=== PATIENT | male | born 1960 | race Caucasian/White ===

== ENCOUNTER 2016-12-04 22:29 | Emergency (ER) | payer MEDICARE, OTHER ==
[2016-12-04 20:59] LABS: BASOPHILS 0.2 %; BASOPHILS ABSOLUTE 0.01 10/3/uL (0.0-0.16); EOSINOPHILS 2.4 %; EOSINOPHILS ABSOLUTE 0.13 10/3/uL (0.0-0.53); ER CBC TAT 0 Hrs 08 Mins; HEMOGLOBIN 11.6 g/dL (13.6-17.8); IMMATURE GRANULOCYTES 0.4 %; IMMATURE GRANULOCYTES ABSOLUTE 0.02 10/3/uL (0.0-0.11); LYMPHOCYTES 15.4 %; LYMPHOCYTES ABSOLUTE 0.82 10/3/uL (0.67-4.30); MEAN CORPUS HGB CONC 32.2 g/dL (32.0-36.0); MEAN CORPUSCULAR HEMOGLOB 28.9 pg (26.0-34.0); MEAN CORPUSCULAR VOLUME 89.8 fL (80-100); MEAN PLATELET VOLUME 10.3 fL (9.2-13.0); MONOCYTES 7.2 %; MONOCYTES ABSOLUTE 0.38 10/3/uL (0.21-1.20); NEUTROPHILS 74.4 %; NEUTROPHILS ABSOLUTE 3.95 10/3/uL (2.02-8.40); PLATELET COUNT 180 10/3/uL (150-400); RBC DISTRIBUTION WIDTH 15.3 % (12.0-16.0); RED CELL COUNT 4.01 10/6/uL (4.7-6.1); WHITE BLOOD CELLS 5.3 10/3/uL (4.5-10.5)
[2016-12-04 21:04] LABS: MANUAL DIFF NO %
[2016-12-04 21:16] LABS: A/G RATIO 0.8 (0.7-1.9); ALKALINE PHOSPHATASE 75 U/L (45-117); CALCIUM, SERUM 8.7 MG/DL (8.5-10.4); CHLORIDE, SERUM 104 MMOL/L (96-112); CO2 (CARBON DIOXIDE) 31 MMOL/L (24-34); CREATININE 0.61 MG/DL (0.70-1.30); GFR AFRICAN AMERICAN 128 ML/MIN (>=60); GFR NON AFRICAN AMERICAN 110 ML/MIN (>=60); GLOBULIN 3.7 G/DL (2.5-4.1); SGOT(AST) 7 U/L (5-40); SGPT(ALT) 15 U/L (5-65); SODIUM, SERUM 145 MMOL/L (135-148); TOTAL BILIRUBIN 0.4 MG/DL (0-1.2); TOTAL PROTEIN 6.6 G/DL (6.0-8.5)
[2016-12-04 21:20] LABS: ASCORBIC ACID (UR NOT ORDER) NEG (NEG); BILIRUBIN, URINE NEGATIVE (NEG); ER URINALYSIS TAT 0 Hrs 10 Mins; KETONE, URINE TRACE MG/DL (NEG); LEUKOCYTE ESTERASE(NOT OR TRACE (NEG); NITRITE (URINE) NEG (NEG); WBC (NOT ORDERED) (RFLEX) 12 (0-5)
[2016-12-04 21:20] LABS: ALBUMIN 2.9 G/DL (3.5-5.0); BUN (BLOOD UREA NITROGEN) 12 MG/DL (6-23); GLUCOSE, SERUM 87 MG/DL (60-99)
[~2016-12-04 22:29] MED LIST: ATV1 PO; CELEXA20 PO; CENTRUM PO; CIP5 PO; DEPAKOTE 125 M125 MG PO; DEPASPRINK PO; DSS PO; ELIQUIS 5 MG TAB5 MG PO; FERROUS SULF325 M1 PO; FLEX PO; FLOMAX4 PO; H5 PO; KEPPRA500 PO; LYRICA50 PO; MELA3 PO; MOBIC15 MG PO; MOMUD PO; MULTIVIT/MIN PO; MYLANTA ULTR1 TAB PO; NAMENXR28 PO; NAMZARIC 28 MG1 EACH PO; NORCO1 TA1 PO; NORCO1 TA2 PO; PERCOCET1 TA2 PO; REM15SOL PO; RISP1 PO; SEPTRA DS1 TAB PO; V5 PO; ZOFRAN4 PO
== END 2016-12-05 01:13 | disposition home or self-care (01) ==
LOC: ER 22:29
PROVIDERS: Nurse Practitioner Acute Care
DX: R06.00 Dyspnea, unspecified (principal); F03.90 Unspecified dementia, unspecified severity, without behavioral disturbance, psychotic disturbance, mood disturbance, and anxiety; F41.9 Anxiety disorder, unspecified; Z87.01 Personal history of pneumonia (recurrent); F25.9 Schizoaffective disorder, unspecified; Z87.440 Personal history of urinary (tract) infections; Z87.891 Personal history of nicotine dependence; Z79.899 Other long term (current) drug therapy
CPT/HCPCS: 71010; 71275; 80053; 81001; 83605; 85025; 85379; 87040; 93005; 99285; Q9967

== ENCOUNTER 2016-12-20 00:54 | Emergency (ER) | payer MEDICARE, OTHER ==
[2016-12-20 01:29] LABS: BASOPHILS 0.1 %; BASOPHILS ABSOLUTE 0.01 10/3/uL (0.0-0.16); EOSINOPHILS 0.7 %; EOSINOPHILS ABSOLUTE 0.05 10/3/uL (0.0-0.53); ER CBC TAT 0 Hrs 05 Mins; HEMATOCRIT 37.3 % (40.0-51.0); HEMOGLOBIN 12.2 g/dL (13.6-17.8); IMMATURE GRANULOCYTES 0.3 %; IMMATURE GRANULOCYTES ABSOLUTE 0.02 10/3/uL (0.0-0.11); LYMPHOCYTES 17.1 %; LYMPHOCYTES ABSOLUTE 1.14 10/3/uL (0.67-4.30); MEAN CORPUS HGB CONC 32.7 g/dL (32.0-36.0); MEAN CORPUSCULAR HEMOGLOB 29.5 pg (26.0-34.0); MEAN CORPUSCULAR VOLUME 90.1 fL (80-100); MEAN PLATELET VOLUME 9.9 fL (9.2-13.0); MONOCYTES 6.4 %; MONOCYTES ABSOLUTE 0.43 10/3/uL (0.21-1.20); NEUTROPHILS 75.4 %; NEUTROPHILS ABSOLUTE 5.02 10/3/uL (2.02-8.40); RBC DISTRIBUTION WIDTH 14.8 % (12.0-16.0); RED CELL COUNT 4.14 10/6/uL (4.7-6.1); WHITE BLOOD CELLS 6.7 10/3/uL (4.5-10.5)
[2016-12-20 01:30] LABS: MANUAL DIFF NO %; PLATELET COUNT 300 10/3/uL (150-400)
[2016-12-20 01:38] LABS: INTERNATIONAL NORMAL RATI 1.3 UNITS (-); PARTIAL THROMBO TIME 36.1 SEC (22.5-37.2); PROTIME (NOT ORD) 15.6 SEC (12.0-14.5)
[2016-12-20 01:42] LABS: BUN (BLOOD UREA NITROGEN) 12 MG/DL (6-23); CALCIUM, SERUM 9.3 MG/DL (8.5-10.4); CHLORIDE, SERUM 106 MMOL/L (96-112); CO2 (CARBON DIOXIDE) 31 MMOL/L (24-34); CREATININE 0.66 MG/DL (0.70-1.30); GFR AFRICAN AMERICAN 124 ML/MIN (>=60); GFR NON AFRICAN AMERICAN 107 ML/MIN (>=60); GLUCOSE, SERUM 95 MG/DL (60-99); POTASSIUM, SERUM 3.7 MMOL/L (3.5-5.3); SODIUM, SERUM 146 MMOL/L (135-148)
== END 2016-12-20 03:31 | disposition home or self-care (01) ==
LOC: ER 00:54
PROVIDERS: Nurse Practitioner Acute Care
DX: I82.401 Acute embolism and thrombosis of unspecified deep veins of right lower extremity (principal); F03.90 Unspecified dementia, unspecified severity, without behavioral disturbance, psychotic disturbance, mood disturbance, and anxiety; F32.9 Major depressive disorder, single episode, unspecified; F25.9 Schizoaffective disorder, unspecified; Z87.01 Personal history of pneumonia (recurrent); Z79.899 Other long term (current) drug therapy
CPT/HCPCS: 80048; 85025; 85610; 85730; 99284

== ENCOUNTER 2017-02-10 11:10 | Inpatient (IN) | payer MEDICARE, OTHER ==
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
--- NOTE | ~2017-02-10 | EEG ---
Electroencephalogram [facility] [address] [place]. [address] NAME: DANAY AMAYA : 56 STATUS : ADM IN PAT#: [id number] AGE: 57 ADM/REG DATE : 02/10/17 MR#: [id number] REPORT SERV DATE: 02/12/17 DICTATED BY: DATE: REPORT STATUS : Draft TRANSCRIBED BY: MODL DATE: 02/12/17 INDICATION: Encephalopathy. DESCRIPTION: This EEG was performed using 10/20 electrode placement system with the patient noted to have symmetric background activity, predominant occipital rhythm of 8-9 hertz. Photic stimulation was performed. Hyperventilation was not performed secondary to the patient's underlying medical condition. During the EEG study, the patient was noted to have episodes of shaking with subsequent rhythmic activity, mostly noted in the right occipital area with . The patient was noted to have the same rhythmic activity with EKG leads. Otherwise, no other focal abnormalities, seizure activity, seizure discharge was noted. Prior to the shaking episode, the patient was not noted to have any abnormal EEG changes the patient does not appear to have any EEG background slowing after shaking episodes. The patient achieved drowsy state during the EEG study. INTERPRETATION: This EEG study obtained during awake and drowsy state may be considered within normal limits. During the EEG study, the patient does have episodes of shaking activity with resulting EKG rhythmic activity as well as rhythmic activity mostly in the right occipital area without significant . Rhythmic activity on the EEG as well as EKG leads was felt to be secondary to motion artifact, less likely to be seizure in origin. Clinical correlation is otherwise recommended. [facility]/MODL Jonatan Reynoso MD / [id number] CC: DO Zak Geller M.D.
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
[2017-02-10 10:55] LABS: BASOPHILS 0.2 %; BASOPHILS ABSOLUTE 0.01 10/3/uL (0.0-0.16); EOSINOPHILS 1.7 %; IMMATURE GRANULOCYTES 0.5 %; IMMATURE GRANULOCYTES ABSOLUTE 0.03 10/3/uL (0.0-0.11); LYMPHOCYTES 11.4 %; LYMPHOCYTES ABSOLUTE 0.67 10/3/uL (0.67-4.30); MEAN CORPUS HGB CONC 31.9 g/dL (32.0-36.0); MEAN CORPUSCULAR HEMOGLOB 27.9 pg (26.0-34.0); MEAN CORPUSCULAR VOLUME 87.4 fL (80-100); MEAN PLATELET VOLUME 9.1 fL (9.2-13.0); MONOCYTES 9.7 %; MONOCYTES ABSOLUTE 0.57 10/3/uL (0.21-1.20); NEUTROPHILS 76.5 %; NEUTROPHILS ABSOLUTE 4.52 10/3/uL (2.02-8.40); PLATELET COUNT 228 10/3/uL (150-400); RBC DISTRIBUTION WIDTH 14.5 % (12.0-16.0); WHITE BLOOD CELLS 5.9 10/3/uL (4.5-10.5)
[2017-02-10 10:56] LABS: HEMATOCRIT 26.3 % (40.0-51.0); HEMOGLOBIN 8.4 g/dL (13.6-17.8); MANUAL DIFF NO %; RED CELL COUNT 3.01 10/6/uL (4.7-6.1)
[2017-02-10 11:11] LABS: A/G RATIO 0.8 (0.7-1.9); ALBUMIN 2.6 G/DL (3.5-5.0); ALKALINE PHOSPHATASE 65 U/L (45-117); BUN (BLOOD UREA NITROGEN) 14 MG/DL (6-23); CALCIUM, SERUM 9.2 MG/DL (8.5-10.4); CHLORIDE, SERUM 112 MMOL/L (96-112); CO2 (CARBON DIOXIDE) 32 MMOL/L (24-34); CREATININE 0.56 MG/DL (0.70-1.30); GFR AFRICAN AMERICAN 131 ML/MIN (>=60); GFR NON AFRICAN AMERICAN 113 ML/MIN (>=60); GLOBULIN 3.1 G/DL (2.5-4.1); GLUCOSE, SERUM 100 MG/DL (60-99); POTASSIUM, SERUM 4.3 MMOL/L (3.5-5.3); SGOT(AST) 10 U/L (5-40); SGPT(ALT) 9 U/L (5-65); SODIUM, SERUM 148 MMOL/L (135-148); TOTAL BILIRUBIN 0.3 MG/DL (0-1.2); TOTAL PROTEIN 5.7 G/DL (6.0-8.5)
[2017-02-10] MEDS ORDERED: RISP2 PO (11:12)
[2017-02-10 13:04] LABS: ASCORBIC ACID (UR NOT ORDER) NEG (NEG); BILIRUBIN, URINE NEGATIVE (NEG); KETONE, URINE NEGATIVE (NEG); LEUKOCYTE ESTERASE(NOT OR TRACE (NEG); NITRITE (URINE) NEG (NEG)
[2017-02-10 13:05] LABS: WBC (NOT ORDERED) (RFLEX) > 182 (0-5)
[2017-02-10 13:06] LABS: INTERNATIONAL NORMAL RATI 1.3 UNITS (-); PARTIAL THROMBO TIME 35.5 SEC (22.5-37.2); PROTIME (NOT ORD) 16.4 SEC (12.0-14.5)
[2017-02-10 13:19] LABS: ALLENS TEST Pos; BE (BASE EXCESS) -0.6 MEQ/L (0 +/- 2.5); CARBOXYHEMOGLOBIN 1.2 % (0-3); HEMOBLOGIN CONTENT 8.5 G/DL (14-18); INSTRUMENT SERIAL # 8087; METHEMOGLOBIN 0.4 % (0-3); OPERATOR ID 18801; PCO2 (CO2 TENSION) 46 MMHG (35-45); PO2 (O2 TENSION) 160 MMHG (79-93); SAMPLE Arterial; pH 7.35 (7.37-7.43)
[2017-02-10 19:17] LABS: HEMATOCRIT 26.4 % (40.0-51.0); HEMOGLOBIN 8.6 g/dL (13.6-17.8)
[2017-02-10 19:36] LABS: TROPONIN I <0.02 NG/ML (<0.05)
[2017-02-10 20:20] LABS: PROCALCITONIN < 0.05 ng/mL (<0.5)
[2017-02-10 22:34] LABS: HEMATOCRIT 26.7 % (40.0-51.0); HEMOGLOBIN 8.8 g/dL (13.6-17.8)
[2017-02-10 22:49] LABS: A/G RATIO 0.7 (0.7-1.9); ALBUMIN 2.3 G/DL (3.5-5.0); ALKALINE PHOSPHATASE 63 U/L (45-117); CALCIUM, SERUM 8.3 MG/DL (8.5-10.4); CHLORIDE, SERUM 112 MMOL/L (96-112); GFR AFRICAN AMERICAN 137 ML/MIN (>=60); GFR NON AFRICAN AMERICAN 119 ML/MIN (>=60); GLOBULIN 3.1 G/DL (2.5-4.1); GLUCOSE, SERUM 91 MG/DL (60-99); POTASSIUM, SERUM 3.9 MMOL/L (3.5-5.3); SGOT(AST) 14 U/L (5-40); SGPT(ALT) 9 U/L (5-65); SODIUM, SERUM 146 MMOL/L (135-148); TOTAL BILIRUBIN 0.4 MG/DL (0-1.2); TOTAL PROTEIN 5.4 G/DL (6.0-8.5)
[2017-02-10 22:51] LABS: BUN (BLOOD UREA NITROGEN) 8 MG/DL (6-23); CO2 (CARBON DIOXIDE) 27 MMOL/L (24-34)
[2017-02-11 02:20] LABS: ALLENS TEST Pos; CARBOXYHEMOGLOBIN 0.7 % (0-3); DEVICE NC; HCO3 (ACTUAL BICARBONATE) 25.7 MEQ/L (23-27); HEMOBLOGIN CONTENT 9.1 G/DL (14-18); INSTRUMENT SERIAL # 8083; METHEMOGLOBIN 0.3 % (0-3); O2 CONTENT 12.4 VOL% (18-24); OPERATOR ID 31061; PCO2 (CO2 TENSION) 41 MMHG (35-45); PO2 (O2 TENSION) 91 MMHG (79-93); SAMPLE Arterial; pH 7.41 (7.37-7.43)
[2017-02-11 05:17] LABS: BASOPHILS 0.3 %; BASOPHILS ABSOLUTE 0.02 10/3/uL (0.0-0.16); EOSINOPHILS 2.2 %; EOSINOPHILS ABSOLUTE 0.15 10/3/uL (0.0-0.53); HEMATOCRIT 26.5 % (40.0-51.0); HEMOGLOBIN 8.8 g/dL (13.6-17.8); IMMATURE GRANULOCYTES 0.3 %; IMMATURE GRANULOCYTES ABSOLUTE 0.02 10/3/uL (0.0-0.11); LYMPHOCYTES 11.1 %; LYMPHOCYTES ABSOLUTE 0.76 10/3/uL (0.67-4.30); MEAN CORPUS HGB CONC 33.2 g/dL (32.0-36.0); MEAN CORPUSCULAR HEMOGLOB 28.9 pg (26.0-34.0); MEAN CORPUSCULAR VOLUME 87.2 fL (80-100); MEAN PLATELET VOLUME 9.7 fL (9.2-13.0); MONOCYTES 7.4 %; MONOCYTES ABSOLUTE 0.51 10/3/uL (0.21-1.20); NEUTROPHILS 78.7 %; NEUTROPHILS ABSOLUTE 5.39 10/3/uL (2.02-8.40); PLATELET COUNT 229 10/3/uL (150-400); RBC DISTRIBUTION WIDTH 14.8 % (12.0-16.0); RED CELL COUNT 3.04 10/6/uL (4.7-6.1); WHITE BLOOD CELLS 6.9 10/3/uL (4.5-10.5)
[2017-02-11 05:19] LABS: MANUAL DIFF NO %
[2017-02-11 05:32] LABS: BUN (BLOOD UREA NITROGEN) 6 MG/DL (6-23); CALCIUM, SERUM 8.7 MG/DL (8.5-10.4); CHLORIDE, SERUM 112 MMOL/L (96-112); CO2 (CARBON DIOXIDE) 27 MMOL/L (24-34); CREATININE 0.68 MG/DL (0.70-1.30); GFR AFRICAN AMERICAN 121 ML/MIN (>=60); GFR NON AFRICAN AMERICAN 105 ML/MIN (>=60); GLUCOSE, SERUM 114 MG/DL (60-99); PHOSPHORUS, SERUM 3.5 MG/DL (2.5-4.5); POTASSIUM, SERUM 3.6 MMOL/L (3.5-5.3); SODIUM, SERUM 148 MMOL/L (135-148); TROPONIN I <0.02 NG/ML (<0.05)
[2017-02-11 10:05] LABS: HEMOGLOBIN 8.6 g/dL (13.6-17.8)
[2017-02-11 10:47] LABS: HEMATOCRIT 25.4 % (40.0-51.0); HEMOGLOBIN 8.5 g/dL (13.6-17.8)
[2017-02-11 11:06] LABS: CK-MB 2.2 NG/ML; CPK 66 U/L (0-200); FOLATE 21.1 NG/ML (>5.2); TROPONIN I <0.02 NG/ML (<0.05)
[2017-02-11 17:50] LABS: HEMATOCRIT 23.4 % (40.0-51.0)
[2017-02-11 18:03] LABS: CPK 62 U/L (0-200); TROPONIN I <0.02 NG/ML (<0.05)
[2017-02-11 18:04] LABS: CK-MB 1.5 NG/ML
[2017-02-11 23:09] LABS: HEMATOCRIT 24.5 % (40.0-51.0); HEMOGLOBIN 7.9 g/dL (13.6-17.8)
[2017-02-12 05:19] LABS: BASOPHILS 0.3 %; BASOPHILS ABSOLUTE 0.01 10/3/uL (0.0-0.16); EOSINOPHILS 3.6 %; EOSINOPHILS ABSOLUTE 0.12 10/3/uL (0.0-0.53); HEMATOCRIT 21.8 % (40.0-51.0); HEMOGLOBIN 7.1 g/dL (13.6-17.8); IMMATURE GRANULOCYTES 0.3 %; IMMATURE GRANULOCYTES ABSOLUTE 0.01 10/3/uL (0.0-0.11); LYMPHOCYTES 26.9 %; MANUAL DIFF NO %; MEAN CORPUS HGB CONC 32.6 g/dL (32.0-36.0); MEAN CORPUSCULAR HEMOGLOB 28.6 pg (26.0-34.0); MEAN CORPUSCULAR VOLUME 87.9 fL (80-100); MEAN PLATELET VOLUME 9.9 fL (9.2-13.0); MONOCYTES 11.4 %; MONOCYTES ABSOLUTE 0.38 10/3/uL (0.21-1.20); NEUTROPHILS 57.5 %; NEUTROPHILS ABSOLUTE 1.92 10/3/uL (2.02-8.40); PLATELET COUNT 198 10/3/uL (150-400); RBC DISTRIBUTION WIDTH 14.8 % (12.0-16.0); RED CELL COUNT 2.48 10/6/uL (4.7-6.1); WHITE BLOOD CELLS 3.3 10/3/uL (4.5-10.5)
[2017-02-12 06:05] LABS: CALCIUM, SERUM 8.2 MG/DL (8.5-10.4); CHLORIDE, SERUM 113 MMOL/L (96-112); CO2 (CARBON DIOXIDE) 29 MMOL/L (24-34); CREATININE 0.51 MG/DL (0.70-1.30); FREE T4 1.04 NG/DL (0.76-1.46); GFR AFRICAN AMERICAN 136 ML/MIN (>=60); GFR NON AFRICAN AMERICAN 118 ML/MIN (>=60); GLUCOSE, SERUM 103 MG/DL (60-99); POTASSIUM, SERUM 3.2 MMOL/L (3.5-5.3); SODIUM, SERUM 143 MMOL/L (135-148)
[2017-02-12 06:13] LABS: BUN (BLOOD UREA NITROGEN) 2 MG/DL (6-23); FOLATE 19.2 NG/ML (>5.2); PHOSPHORUS, SERUM 2.4 MG/DL (2.5-4.5)
[2017-02-12 10:54] LABS: HEMATOCRIT 23.6 % (40.0-51.0); HEMOGLOBIN 7.7 g/dL (13.6-17.8)
[2017-02-12 13:54] LABS: AMPHETAMINES (NOT ORD) NEG (NEG); BARBITURATES (NOT ORDERED NEG (NEG); BENZODIAZEPINES (NOT ORD) NEG (NEG); CANNABINOIDS (THC) NEG (NEG); COCAINE (NOT ORDERED) NEG (NEG); OPIATES NEG (NEG); PHENCYCLIDINE(PCP) NEG (NEG); TRICYCLICS NEG (NEG)
[2017-02-12 14:31] LABS: WBC (NOT ORDERED) (RFLEX) 0 (0-5)
[2017-02-12 15:18] LABS: ASCORBIC ACID (UR NOT ORDER) NEG (NEG); BILIRUBIN, URINE NEGATIVE (NEG); KETONE, URINE NEGATIVE (NEG); LEUKOCYTE ESTERASE(NOT OR NEG (NEG)
[2017-02-12 15:49] LABS: AMPHETAMINES (NOT ORD) NEG (NEG); BARBITURATES (NOT ORDERED NEG (NEG); BENZODIAZEPINES (NOT ORD) POS (NEG); CANNABINOIDS (THC) NEG (NEG); COCAINE (NOT ORDERED) NEG (NEG); OPIATES NEG (NEG); PHENCYCLIDINE(PCP) NEG (NEG); TRICYCLICS NEG (NEG)
[2017-02-13 05:51] LABS: BASOPHILS 0.2 %; BASOPHILS ABSOLUTE 0.02 10/3/uL (0.0-0.16); EOSINOPHILS 0.8 %; EOSINOPHILS ABSOLUTE 0.08 10/3/uL (0.0-0.53); IMMATURE GRANULOCYTES 0.4 %; IMMATURE GRANULOCYTES ABSOLUTE 0.04 10/3/uL (0.0-0.11); LYMPHOCYTES 8.6 %; MEAN CORPUS HGB CONC 33.9 g/dL (32.0-36.0); MEAN CORPUSCULAR HEMOGLOB 28.9 pg (26.0-34.0); MEAN PLATELET VOLUME 9.8 fL (9.2-13.0); MONOCYTES 5.4 %; MONOCYTES ABSOLUTE 0.57 10/3/uL (0.21-1.20); NEUTROPHILS 84.6 %; NEUTROPHILS ABSOLUTE 8.89 10/3/uL (2.02-8.40); PLATELET COUNT 234 10/3/uL (150-400); RBC DISTRIBUTION WIDTH 14.9 % (12.0-16.0)
[2017-02-13 05:54] LABS: HEMATOCRIT 33.3 % (40.0-51.0); HEMOGLOBIN 11.3 g/dL (13.6-17.8); MEAN CORPUSCULAR VOLUME 85.2 fL (80-100); RED CELL COUNT 3.91 10/6/uL (4.7-6.1); WHITE BLOOD CELLS 10.5 10/3/uL (4.5-10.5)
[2017-02-13 05:55] LABS: MANUAL DIFF NO %
[2017-02-13 06:02] LABS: BUN (BLOOD UREA NITROGEN) 1 MG/DL (6-23); CALCIUM, SERUM 8.3 MG/DL (8.5-10.4); CHLORIDE, SERUM 111 MMOL/L (96-112); CO2 (CARBON DIOXIDE) 26 MMOL/L (24-34); CREATININE 0.52 MG/DL (0.70-1.30); GFR AFRICAN AMERICAN 135 ML/MIN (>=60); GFR NON AFRICAN AMERICAN 117 ML/MIN (>=60); GLUCOSE, SERUM 101 MG/DL (60-99); PHOSPHORUS, SERUM 2.2 MG/DL (2.5-4.5); POTASSIUM, SERUM 3.4 MMOL/L (3.5-5.3); SODIUM, SERUM 145 MMOL/L (135-148); VANCOMYCIN TROUGH 17.7 MCG/ML (10.0-20.0)
[2017-02-14 05:28] LABS: BASOPHILS 0.2 %; BASOPHILS ABSOLUTE 0.02 10/3/uL (0.0-0.16); EOSINOPHILS 0.5 %; EOSINOPHILS ABSOLUTE 0.05 10/3/uL (0.0-0.53); HEMATOCRIT 32.2 % (40.0-51.0); HEMOGLOBIN 10.8 g/dL (13.6-17.8); IMMATURE GRANULOCYTES 0.2 %; IMMATURE GRANULOCYTES ABSOLUTE 0.02 10/3/uL (0.0-0.11); LYMPHOCYTES 10.2 %; LYMPHOCYTES ABSOLUTE 1.09 10/3/uL (0.67-4.30); MANUAL DIFF NO %; MEAN CORPUS HGB CONC 33.5 g/dL (32.0-36.0); MEAN CORPUSCULAR HEMOGLOB 28.5 pg (26.0-34.0); MEAN PLATELET VOLUME 9.8 fL (9.2-13.0); MONOCYTES 6.7 %; MONOCYTES ABSOLUTE 0.72 10/3/uL (0.21-1.20); NEUTROPHILS 82.2 %; NEUTROPHILS ABSOLUTE 8.78 10/3/uL (2.02-8.40); PLATELET COUNT 255 10/3/uL (150-400); RBC DISTRIBUTION WIDTH 15.2 % (12.0-16.0); RED CELL COUNT 3.79 10/6/uL (4.7-6.1); WHITE BLOOD CELLS 10.7 10/3/uL (4.5-10.5)
[2017-02-14 05:37] LABS: CALCIUM IONIZED 4.61 MG/DL (3.80-4.80)
[2017-02-14 05:43] LABS: A/G RATIO 0.8 (0.7-1.9); ALKALINE PHOSPHATASE 66 U/L (45-117); BUN (BLOOD UREA NITROGEN) 2 MG/DL (6-23); CALCIUM, SERUM 8.2 MG/DL (8.5-10.4); CHLORIDE, SERUM 111 MMOL/L (96-112); CO2 (CARBON DIOXIDE) 24 MMOL/L (24-34); CREATININE 0.61 MG/DL (0.70-1.30); GFR AFRICAN AMERICAN 127 ML/MIN (>=60); GFR NON AFRICAN AMERICAN 109 ML/MIN (>=60); GLOBULIN 3.3 G/DL (2.5-4.1); GLUCOSE, SERUM 96 MG/DL (60-99); PHOSPHORUS, SERUM 2.4 MG/DL (2.5-4.5); POTASSIUM, SERUM 3.4 MMOL/L (3.5-5.3); SGOT(AST) 11 U/L (5-40); SGPT(ALT) 11 U/L (5-65); SODIUM, SERUM 143 MMOL/L (135-148); TOTAL BILIRUBIN 0.7 MG/DL (0-1.2); TOTAL PROTEIN 6.1 G/DL (6.0-8.5)
[2017-02-14 05:50] LABS: ALBUMIN 2.8 G/DL (3.5-5.0)
[2017-02-14 06:21] LABS: PROCALCITONIN 0.06 ng/mL (<0.5)
[2017-02-15 05:01] LABS: BASOPHILS 0.2 %; BASOPHILS ABSOLUTE 0.02 10/3/uL (0.0-0.16); EOSINOPHILS 0.7 %; EOSINOPHILS ABSOLUTE 0.06 10/3/uL (0.0-0.53); HEMATOCRIT 31.4 % (40.0-51.0); HEMOGLOBIN 10.7 g/dL (13.6-17.8); IMMATURE GRANULOCYTES 0.2 %; IMMATURE GRANULOCYTES ABSOLUTE 0.02 10/3/uL (0.0-0.11); LYMPHOCYTES 13.7 %; LYMPHOCYTES ABSOLUTE 1.16 10/3/uL (0.67-4.30); MEAN CORPUS HGB CONC 34.1 g/dL (32.0-36.0); MEAN CORPUSCULAR VOLUME 85.1 fL (80-100); MEAN PLATELET VOLUME 9.7 fL (9.2-13.0); MONOCYTES 7.4 %; MONOCYTES ABSOLUTE 0.63 10/3/uL (0.21-1.20); NEUTROPHILS 77.8 %; PLATELET COUNT 236 10/3/uL (150-400); RBC DISTRIBUTION WIDTH 15.6 % (12.0-16.0); RED CELL COUNT 3.69 10/6/uL (4.7-6.1); WHITE BLOOD CELLS 8.5 10/3/uL (4.5-10.5)
[2017-02-15 05:05] LABS: MANUAL DIFF NO %
[2017-02-15 05:15] LABS: BUN (BLOOD UREA NITROGEN) 3 MG/DL (6-23); CALCIUM, SERUM 8.3 MG/DL (8.5-10.4); CHLORIDE, SERUM 111 MMOL/L (96-112); CO2 (CARBON DIOXIDE) 24 MMOL/L (24-34); CREATININE 0.48 MG/DL (0.70-1.30); GFR AFRICAN AMERICAN 140 ML/MIN (>=60); GFR NON AFRICAN AMERICAN 121 ML/MIN (>=60); GLUCOSE, SERUM 106 MG/DL (60-99); PHOSPHORUS, SERUM 2.4 MG/DL (2.5-4.5); POTASSIUM, SERUM 3.1 MMOL/L (3.5-5.3); SODIUM, SERUM 144 MMOL/L (135-148)
[2017-02-16 05:37] LABS: BASOPHILS 0.4 %; BASOPHILS ABSOLUTE 0.02 10/3/uL (0.0-0.16); EOSINOPHILS 3.3 %; EOSINOPHILS ABSOLUTE 0.16 10/3/uL (0.0-0.53); HEMATOCRIT 33.1 % (40.0-51.0); HEMOGLOBIN 10.8 g/dL (13.6-17.8); IMMATURE GRANULOCYTES 0.4 %; IMMATURE GRANULOCYTES ABSOLUTE 0.02 10/3/uL (0.0-0.11); LYMPHOCYTES 22.9 %; MEAN CORPUS HGB CONC 32.6 g/dL (32.0-36.0); MEAN CORPUSCULAR HEMOGLOB 28.5 pg (26.0-34.0); MEAN CORPUSCULAR VOLUME 87.3 fL (80-100); MEAN PLATELET VOLUME 9.7 fL (9.2-13.0); MONOCYTES 9.1 %; MONOCYTES ABSOLUTE 0.44 10/3/uL (0.21-1.20); NEUTROPHILS 63.9 %; NEUTROPHILS ABSOLUTE 3.07 10/3/uL (2.02-8.40); PLATELET COUNT 245 10/3/uL (150-400); RBC DISTRIBUTION WIDTH 15.5 % (12.0-16.0); RED CELL COUNT 3.79 10/6/uL (4.7-6.1)
[2017-02-16 05:43] LABS: MANUAL DIFF NO %; WHITE BLOOD CELLS 4.8 10/3/uL (4.5-10.5)
[2017-02-16 05:47] LABS: BUN (BLOOD UREA NITROGEN) 2 MG/DL (6-23); CALCIUM, SERUM 8.1 MG/DL (8.5-10.4); CHLORIDE, SERUM 114 MMOL/L (96-112); CO2 (CARBON DIOXIDE) 28 MMOL/L (24-34); CREATININE 0.45 MG/DL (0.70-1.30); GFR AFRICAN AMERICAN 144 ML/MIN (>=60); GFR NON AFRICAN AMERICAN 124 ML/MIN (>=60); GLUCOSE, SERUM 102 MG/DL (60-99); POTASSIUM, SERUM 3.3 MMOL/L (3.5-5.3); SODIUM, SERUM 147 MMOL/L (135-148)
[2017-02-17 07:19] LABS: BUN (BLOOD UREA NITROGEN) 3 MG/DL (6-23); CALCIUM, SERUM 8.3 MG/DL (8.5-10.4); CHLORIDE, SERUM 109 MMOL/L (96-112); CO2 (CARBON DIOXIDE) 26 MMOL/L (24-34); GFR AFRICAN AMERICAN 151 ML/MIN (>=60); GFR NON AFRICAN AMERICAN 130 ML/MIN (>=60); GLUCOSE, SERUM 99 MG/DL (60-99); PHOSPHORUS, SERUM 2.8 MG/DL (2.5-4.5); POTASSIUM, SERUM 3.3 MMOL/L (3.5-5.3); SODIUM, SERUM 143 MMOL/L (135-148)
[2017-02-18 10:49] LABS: BUN (BLOOD UREA NITROGEN) 4 MG/DL (6-23); CALCIUM, SERUM 9.3 MG/DL (8.5-10.4); CHLORIDE, SERUM 112 MMOL/L (96-112); CO2 (CARBON DIOXIDE) 22 MMOL/L (24-34); CREATININE 0.49 MG/DL (0.70-1.30); GFR AFRICAN AMERICAN 139 ML/MIN (>=60); GFR NON AFRICAN AMERICAN 120 ML/MIN (>=60); GLUCOSE, SERUM 105 MG/DL (60-99); POTASSIUM, SERUM 3.5 MMOL/L (3.5-5.3); SODIUM, SERUM 143 MMOL/L (135-148)
[2017-02-19 05:19] LABS: BASOPHILS 0.6 %; BASOPHILS ABSOLUTE 0.05 10/3/uL (0.0-0.16); EOSINOPHILS 3.2 %; EOSINOPHILS ABSOLUTE 0.27 10/3/uL (0.0-0.53); HEMATOCRIT 36.3 % (40.0-51.0); IMMATURE GRANULOCYTES 0.1 %; IMMATURE GRANULOCYTES ABSOLUTE 0.01 10/3/uL (0.0-0.11); LYMPHOCYTES 23.8 %; LYMPHOCYTES ABSOLUTE 1.98 10/3/uL (0.67-4.30); MEAN CORPUS HGB CONC 33.1 g/dL (32.0-36.0); MEAN CORPUSCULAR HEMOGLOB 28.6 pg (26.0-34.0); MEAN CORPUSCULAR VOLUME 86.4 fL (80-100); MEAN PLATELET VOLUME 9.9 fL (9.2-13.0); MONOCYTES 7.1 %; MONOCYTES ABSOLUTE 0.59 10/3/uL (0.21-1.20); NEUTROPHILS 65.2 %; NEUTROPHILS ABSOLUTE 5.41 10/3/uL (2.02-8.40)
[2017-02-19 05:23] LABS: MANUAL DIFF NO %; PLATELET COUNT 342 10/3/uL (150-400); WHITE BLOOD CELLS 8.3 10/3/uL (4.5-10.5)
[2017-02-19 05:34] LABS: CHLORIDE, SERUM 108 MMOL/L (96-112); CREATININE 0.49 MG/DL (0.70-1.30); GFR AFRICAN AMERICAN 139 ML/MIN (>=60); GFR NON AFRICAN AMERICAN 120 ML/MIN (>=60); POTASSIUM, SERUM 3.6 MMOL/L (3.5-5.3); SODIUM, SERUM 143 MMOL/L (135-148)
[2017-02-19 05:37] LABS: BUN (BLOOD UREA NITROGEN) 8 MG/DL (6-23); CO2 (CARBON DIOXIDE) 31 MMOL/L (24-34); GLUCOSE, SERUM 83 MG/DL (60-99)
[2017-02-19 09:28] LABS: PROCALCITONIN <0.05 ng/mL (<0.5)
[2017-02-20 05:27] LABS: BASOPHILS 0.4 %; BASOPHILS ABSOLUTE 0.03 10/3/uL (0.0-0.16); EOSINOPHILS 2.8 %; EOSINOPHILS ABSOLUTE 0.21 10/3/uL (0.0-0.53); HEMATOCRIT 39.3 % (40.0-51.0); HEMOGLOBIN 12.9 g/dL (13.6-17.8); IMMATURE GRANULOCYTES 0.3 %; IMMATURE GRANULOCYTES ABSOLUTE 0.02 10/3/uL (0.0-0.11); LYMPHOCYTES 22.3 %; LYMPHOCYTES ABSOLUTE 1.69 10/3/uL (0.67-4.30); MEAN CORPUS HGB CONC 32.8 g/dL (32.0-36.0); MEAN CORPUSCULAR HEMOGLOB 28.4 pg (26.0-34.0); MEAN CORPUSCULAR VOLUME 86.4 fL (80-100); MONOCYTES ABSOLUTE 0.38 10/3/uL (0.21-1.20); NEUTROPHILS 69.2 %; NEUTROPHILS ABSOLUTE 5.26 10/3/uL (2.02-8.40); PLATELET COUNT 340 10/3/uL (150-400); RED CELL COUNT 4.55 10/6/uL (4.7-6.1); WHITE BLOOD CELLS 7.6 10/3/uL (4.5-10.5)
[2017-02-20 05:28] LABS: MANUAL DIFF NO %
[2017-02-20 05:43] LABS: BUN (BLOOD UREA NITROGEN) 9 MG/DL (6-23); CALCIUM, SERUM 9.9 MG/DL (8.5-10.4); CHLORIDE, SERUM 106 MMOL/L (96-112); CO2 (CARBON DIOXIDE) 27 MMOL/L (24-34); CREATININE 0.65 MG/DL (0.70-1.30); GFR AFRICAN AMERICAN 123 ML/MIN (>=60); GFR NON AFRICAN AMERICAN 106 ML/MIN (>=60); GLUCOSE, SERUM 91 MG/DL (60-99); POTASSIUM, SERUM 3.6 MMOL/L (3.5-5.3); SGOT(AST) 13 U/L (5-40); SGPT(ALT) 16 U/L (5-65); SODIUM, SERUM 141 MMOL/L (135-148); TOTAL BILIRUBIN 0.5 MG/DL (0-1.2)
[2017-02-20 05:51] LABS: A/G RATIO 0.8 (0.7-1.9); ALBUMIN 3.6 G/DL (3.5-5.0); ALKALINE PHOSPHATASE 95 U/L (45-117); GLOBULIN 4.5 G/DL (2.5-4.1); TOTAL PROTEIN 8.1 G/DL (6.0-8.5)
== END 2017-02-21 13:26 | DRG 698 ==
LOC: ER 11:10 → IMCU 15:02 → 1SO 02-13 09:48
PROVIDERS: Hospitalist; Internal Medicine; Nurse Practitioner; Nurse Practitioner Family
PROC: 30233N1 Transfusion of Nonautologous Red Blood Cells into Peripheral Vein, Percutaneous Approach (ICD-10-PCS; principal; 2017-02-10)
DX: T83.83XA Hemorrhage due to genitourinary prosthetic devices, implants and grafts, initial encounter (principal); J96.01 Acute respiratory failure with hypoxia; R57.8 Other shock; G92 Toxic encephalopathy; I95.9 Hypotension, unspecified; D62 Acute posthemorrhagic anemia; E44.1 Mild protein-calorie malnutrition; Z68.1 Body mass index [BMI] 19.9 or less, adult; G40.909 Epilepsy, unspecified, not intractable, without status epilepticus; E87.6 Hypokalemia; Y84.6 Urinary catheterization as the cause of abnormal reaction of the patient, or of later complication, without mention of misadventure at the time of the procedure; Y92.89 Other specified places as the place of occurrence of the external cause; Z87.820 Personal history of traumatic brain injury; Z79.01 Long term (current) use of anticoagulants; Z79.899 Other long term (current) drug therapy; Z79.891 Long term (current) use of opiate analgesic; Z87.891 Personal history of nicotine dependence; Z86.718 Personal history of other venous thrombosis and embolism; Z86.711 Personal history of pulmonary embolism; Z87.01 Personal history of pneumonia (recurrent); Z86.14 Personal history of Methicillin resistant Staphylococcus aureus infection
CPT/HCPCS: 36415; 36600; 70450; 71010; 74176; 74230; 80048; 80053; 80202; 80305; 81001; 82140; 82330; 82533; 82550; 82553; 82607; 82746; 82805; 82962; 83605; 83690; 83735; 84100; 84132; 84145; 84425; 84439; 84443; 84484; 85014; 85018; 85025; 85610; 85730; 86850; 86900; 86901; 86920; 87040; 87086; 87493; 87493-59; 87641; 92610-GN; 92611-GN; 93005; 93970; 94640; 95816; 97162-GP; 99285; A9270-GY; C8929; G8978-CL-GP; G8979-CL-GP; G8980-CL-GP; G8996-CJ-GN; G8996-CK-GN; G8997-CJ-GN; G8997-CK-GN; G8998-CJ-GN; G8998-CK-GN; J1170; J1953; J2543; J3370; J3475; J3486; P9016; P9047; Q9957